=== PATIENT | female | born 1970 | race Caucasian/White ===

== ENCOUNTER 2021-02-09 00:55 | Emergency (ER) | payer SELFPAY ==
--- NOTE | 2021-02-09 00:59 | ED_ITS ---
HPI - Abdominal Pain General: Chief Complaint: Abdominal Pain Stated Complaint: ABD PAIN Time Seen by Provider: 02/09/21 00:59 History of Present Illness: HPI narrative: Ms. Ballesteros is a 50-year-old lady with significant past medical history of hypertension, hyperlipidemia, diabetes who presents emergency department due to abdominal pain. Pain is sharp and aching generally in the abdomen worse in the epigastric region. Symptoms are worse with movement and palpation but do not go with rest. Intensity is moderate to severe. No other systemic signs of illness. She is having bowel movements. No other known provoking, exacerbating, or alleviating factors identified. Review of Systems General: Reports: 10 or more systems reviewed and unremarkable except in HPI and below PFSH ED PFSH: Social History Smoking and tobacco status: never smoked Physical Exam Narrative: EXAM NARRATIVE: GENERAL/CONSTITUTIONAL - well-appearing. Uncomfortable due to abdominal pain. Eyes - PERRL, no conjunctival injection ENMT - Atraumatic external nose and ears. Moist mucous membranes NECK - supple. trachea midline CARDIOVASCULAR - regular rate and rhythm. Peripheral pulses 2+ and equal RESPIRATORY -clear to auscultation bilaterally. ABDOMEN/GI -tenderness to palpation generally with worse in epigastric region, no evidence of remote peritonitis. MSK - Extremities without obvious deformity or tenderness to palpation SKIN - Warm, Dry NEURO - alert and appropriately oriented. strength and sensation intact. Moves all extremities equally. PSYCH - Appropriate mood and affect Course ED course: - Patient was seen and evaluated by me at bedside - Patient placed on cardiac monitors, IV access obtained - Initial evaluation notable for uncomfortable due to abdominal pain. -Symptom treatment ordered - Labs notable for no significant hematologic or metabolic abnormality to explain patient's symptoms. Urinalysis not concerning for urinary tract inf ection. - Imaging notable for fluid-filled small bowel loops without evidence of acute obstruction. - Upon serial reexamination after treatment the patient was improved with symptom management - Based on patient history, evaluation, labs, and imaging as interpreted the most likely cause of the patient's condition is enteritis - The results of ED evaluation were discussed with the patient including prescriptions and/or symptomatic cares (if applicable) including appropriate and responsible use, followup plan, and return precautions. The patient verbalized understanding and felt safe for discharge. - Patient discharged in satisfactory condition. Vital Signs: Vital signs: Vital Signs Temperature 96.9 F L 02/09/21 01:00 Pulse Rate 68 02/09/21 04:44 Respiratory Rate 16 02/09/21 04:44 Blood Pressure 125/80 02/09/21 04:44 Pulse Oximetry 98 02/09/21 04:44 MDM - Abdominal Pain Medical Records: Attestation: I reviewed the patient's medical records. Lab Data: Attestation: I reviewed the patient's lab results. Labs: Lab Results 02/09/21 02/09/21 02/09/21 01:20 01:30 01:30 WBC 7.8 10^3/uL 10^3/ uL (4.0-10.0) RBC 4.20 10^6/uL 10^6 /uL (4.1-5.3) Hgb 11.8 g/dL g/dL (11.5-15.3) Hct 37.2 % % (37.0-47.0) MCV 88.6 fl fl (81-99) MCH 28.1 pg pg (28.0-34.0) MCHC 31.7 g/dL g/dL (30.0-36.0) RDW 12.7 % % (12.1-15.1) Plt Count 314 10^3/cmm 10^3 /cmm (130-400) MPV 9.4 fL fL (7.4-10.4) Neut % (Auto) 63.5 % % Lymph % (Auto) 24.3 % % Hartley % (Auto) 6.7 % % Eos % (Auto) 4.4 % % Baso % (Auto) 0.8 % % Neut # (Auto) 4.96 10^3/uL 10^3 /uL (1.8-7.7) Lymph # (Auto) 1.9 10^3/uL 10^3/ uL (0.8-4.8) Hartley # (Auto) 0.5 10^3/uL 10^3/ uL (0.2-0.9) Eos # (Auto) 0.3 10^3/uL 10^3/ uL (0.0-0.8) Baso # (Auto) 0.1 10^3/uL 10^3/ uL (0.0-0.1) Nucleated RBC % (a uto) 0 % % Nucleated RBCs # 0.0 /100WBC /100W BC Sodium 135 mmol/L L mmol /L (136-145) Potassium 4.0 mmol/L mmol/L (3.5-5.1) Chloride 101 mmol/L mmol/L (98-107) Carbon Dioxide 22 mmol/L mmol/L (22-29) Anion Gap 16.0 (5-19) BUN 21 mg/dL H mg/dL (6-20) Creatinine 0.7 mg/dL mg/dL (0.5-0.9) GFR Calculation 87.9 mL/min L mL/ min (90-130) Glucose 149 mg/dL H mg/dL (65-115) Calculated Osmolal ity 286 mOsm/kg mOsm/ kg (285-295) Lactate Calcium 8.9 mg/dL mg/dL (8.5-10.5) Total Bilirubin 0.2 mg/dL mg/dL (0.15-1.2) AST 13 U/L U/L (0-32) ALT 6 U/L U/L (0-33) Alkaline Phosphata se 76 IU/L IU/L (35-105) Troponin T Baselin e Troponin T 120 [address] [place] Delta Troponin T Total Protein 5.7 g/dL L g/dL (6.6-8.7) Albumin 3.7 g/dL g/dL (3.5-5.2) Globulin 2.0 g/dL g/dL (1.3-4.6) Lipase 58 U/L U/L (13-60) Urine Color Yellow (Yellow) Urine Appearance Clear (CLEAR) Urine pH 7 (5-7) Ur Specific Gravit y 1.005 (1.005-1.030) Urine Protein Neg (Negative) Urine Glucose (UA) Norm (Normal) Urine Ketones Negative (Negative) Urine Blood Neg (Negative) Urine Nitrate Negative (Negative) Urine Bilirubin Neg (Negative) Urine Urobilinogen 1 mg/dL H mg/dL (Negative) Ur Leukocyte Sarah ase Trace H (Negative) Urine RBC 0-4 /hpf H /hpf (0-2) Urine WBC 0-4 /hpf H /hpf (0-5) Ur Squamous Epith Cells 0-4 /hpf H /hpf (0-5) Amorphous Sediment Not Reportable Urine Bacteria Trace /hpf /hpf (NONE) 02/09/21 02/09/21 02/09/21 01:30 01:30 03:24 WBC RBC Hgb Hct MCV MCH MCHC RDW Plt Count MPV Neut % (Auto) Lymph % (Auto) Hartley % (Auto) Eos % (Auto) Baso % (Auto) Neut # (Auto) Lymph # (Auto) Hartley # (Auto) Eos # (Auto) Baso # (Auto) Nucleated RBC % (a uto) Nucleated RBCs # Sodium Potassium Chloride Carbon Dioxide Anion Gap BUN Creatinine GFR Calculation Glucose Calculated Osmolal ity Lactate 1.3 mmol/L mmol/L (0.5-2.2) Calcium Total Bilirubin AST ALT Alkaline Phosphata se Troponin T Baselin e 6 ng/L ng/L (0-10) Troponin T [address] [place] 6.00 ng/L ng/L (0-10) Delta Troponin T 0 ABS# ABS# (0-10) Total Protein Albumin Globulin Lipase Urine Color Urine Appearance Urine pH Ur Specific Gravit y Urine Protein Urine Glucose (UA) Urine Ketones Urine Blood Urine Nitrate Urine Bilirubin Urine Urobilinogen Ur Leukocyte Sarah ase Urine RBC Urine WBC Ur Squamous Epith Cells Amorphous Sediment Urine Bacteria EKG Data ^: EKG 1: Attestation: I personally reviewed and interpreted this EKG as follows: EKG interpretation date: 02/09/21 EKG interpretation time: 01:58 Interpretation: Twelve-lead EKG shows a regular rhythm at a rate of 60. MS interval 154, QRS duration 84, QTc 430. Normal axis Interpretation: Sinus rhythm. Discharge Plan Discharge Patient Disposition: Home Clinical Impression: Abdominal pain, Enteritis Condition: Stable Prescriptions: New oxycodone 5 mg tablet 5 mg PO Q4H PRN (Reason: pain) Qty: 10 RF: 0 Zofran 4 mg tablet 4 mg PO Q8H 5 Days Qty: 15 RF: 0 No Action metformin 1,000 mg tablet 1,000 mg PO BID RF: 0 alprazolam [Xanax] 0.5 mg tablet 0.5 mg PO BID RF: 0 ropinirole 1 mg tablet 1 mg PO DAILY RF: 0 glipizide 10 mg tablet 10 mg PO BID RF: 0 lisinopril 10 mg tablet 10 mg PO DAILY RF: 0 valacyclovir 500 mg tablet 1,000 mg PO Q8H 7 Days Qty: 42 RF: 0 gabapentin 100 mg capsule 100 mg PO BID Qty: 20 RF: 0 Discharge Orders: Discharge ED (Routine); Ordered 02/09/21 Ordered By: Ean Lizarraga Discharge Diet: Advance as tolerated and Clear Liquid Discharge Activity: Resume usual activity Patient Instructions: Abdominal Pain (ED), Opioid Safety Activity Restrictions/Additional Instructions: Thank you for visiting the emergency department. You were seen and evaluated for abdominal pain. The exact cause of your symptoms is unclear, you were noted to have small bowel loops that were mildly prominent and fluid-filled which may be due to irritation of the small bowel. Please return the emergency department for worsening symptoms, inability to have bowel movements or pass gas, inability to tolerate oral intake, or anything else that you are concerned about and feel needs emergency department evaluation. Coding Level of Care Code ED Pharmacy Technician Instructor for Pavel Marquez
[2021-02-09 01:00] VITALS: BP 168/76; PULSE 68; RESP 18; TEMP 36.1; O2SAT 97; BMI 29.9
--- NOTE | 2021-02-09 01:04 | CTR_ITS ---
PROCEDURE INFORMATION: Exam: CT Abdomen And Pelvis With Contrast Exam date and time: 02/09/2021 1:04 AM Age: 50 years old Clinical indication: Abdominal pain; Prior surgery; Surgery type: Tubal ligation; Patient HX: Epigastric pain with nausea. ; Additional info: Epigastric abdominal pain TECHNIQUE: Imaging protocol: Computed tomography of the abdomen and pelvis with contrast. Radiation optimization: All CT scans at this facility use at least one of these dose optimization techniques: automated exposure control; mA and/or kV adjustment per patient size (includes targeted exams where dose is matched to clinical indication); or iterative reconstruction. Contrast material: OMNI 300; Contrast volume: 95 ml; Contrast route: INTRAVENOUS (IV); COMPARISON: No relevant prior studies available. RADIATION DOSE METRICS: Total DLP (mGy-cm): 1711.76 FINDINGS: Lungs: Numerous small calcified granulomas in the lower lungs. The lung bases otherwise appear essentially clear. Liver: There is fatty infiltration of the liver. The liver appears somewhat enlarged, with right lobe length of about 22 cm. No definite/significant focal hepatic abnormality. Gallbladder and bile ducts: Numerous small calcified gallstones within the gallbladder. The gallbladder is upper limit of normal in size, transverse diameter about 4 cm. No definite pericholecystic fluid or inflammation. No biliary tree dilation. Pancreas: Unremarkable. Spleen: Unremarkable. Adrenal glands: Unremarkable. Kidneys and ureters: Left upper pole intrarenal calculus. No hydronephrosis of either kidney. No visible ureteral calculus. No perinephric fluid. The kidneys enhance homogeneously. Stomach and bowel: A few small bowel loops in the left abdomen are fluid-filled and borderline prominent in size. The overall appearance is not suggestive of significant small bowel obstruction at this time. This appearance could be secondary to some form of gastroenteritis. Please correlate clinically. If there is clinical suspicion for small bowel obstruction, follow-up may be helpful to exclude progression. There are no CT findings to strongly suggest diverticulitis. Appendix: The appendix is visualized and appears normal. Intraperitoneal space: No free intraperitoneal air, or ascites. Vasculature: No evidence for abdominal aortic aneurysm. Lymph nodes: No retroperitoneal adenopathy. Urinary bladder: Possibly some diffuse urinary bladder wall thickening. However, evaluation is limited, as the bladder is essentially empty. While nonspecific, this could indicate evidence for cystitis. Please correlate clinically. Reproductive: Essentially unremarkable for age. Bones/joints: No significant acute finding. Soft tissues: Very small umbilical hernia, containing only fat. CT/CT abdomen pelvis w con* [id number] IMPRESSION: 1. Cholelithiasis, see additional details above. 2. A few small bowel loops are fluid-filled and borderline prominent in size, see above discussion. This appearance could be secondary to some form of gastroenteritis. 3. Normal appendix. 4. No free intraperitoneal air. 5. Possible diffuse urinary bladder wall thickening, see above. 6. Other findings discussed above. Radiation Dose CTDIVOL = (mGy): DLP = 1711.76 (mGy-cm)
--- NOTE | 2021-02-09 01:05 | ECG_ITS ---
[facility] Test Date: 2021-02-09 Pat Name: Myriam Daly Department: Room: Gender: Female Transportation Associate: : 1970 Requested By: Ean Lizarraga Order Number: [id number] Nikki MD: Sherman Barrera M.D. Measurements Intervals [place] Rate: 60 P: 42 MD: 154 QRS: 6 QRSD: 84 T: 30 QT: 429 QTc: 430 Interpretive Statements SINUS RHYTHM LOW QRS VOLTAGE IN PRECORDIAL LEADS [QRS DEFLECTION < 1.0 mV IN CHEST LEADS] POSSIBLE RIGHT VENTRICULAR CONDUCTION DELAY [RSR (QR) IN V1/V2] No previous ECG available for comparison Electronically Signed On 02-09-2021 18:38:12 CDT by Sherman Barrera M.D. [email or web address]
[2021-02-09] MEDS: ondansetron 2 mg/ML SDV 2 mL 4 MG IVP (01:20)
[2021-02-09 01:27] VITALS: RESP 22
[2021-02-09] MEDS: morphine 4 mg/mL SDV 1 mL IVP (01:27)
[2021-02-09] MEDS: iohexol 300 mg/mL 100 mL Btl IV (01:28)
[2021-02-09] MEDS: sodium chloride 0.9% 1,000 ML 999 ML IV (01:33)
[2021-02-09 01:49] LABS: Basophils # 0.1 10^3/uL (0.0-0.1); Basophils % 0.8 %; Eosinophils # 0.3 10^3/uL (0.0-0.8); Eosinophils % 4.4 %; Hematocrit 37.2 % (37.0-47.0); Hemoglobin 11.8 g/dL (11.5-15.3); Lymphocytes # 1.9 10^3/uL (0.8-4.8); Lymphocytes % 24.3 %; Mean Corpuscular HGB Conc 31.7 g/dL (30.0-36.0); Mean Corpuscular Hemoglobin 28.1 pg (28.0-34.0); Mean Corpuscular Volume 88.6 fl (81-99); Mean Platelet Volume 9.4 fL (7.4-10.4); Monocytes # 0.5 10^3/uL (0.2-0.9); Monocytes % 6.7 %; Neutrophils # 4.96 10^3/uL (1.8-7.7); Neutrophils % 63.5 %; Nucleated Red Blood Cells % 0 %; Platelet Count 314 10^3/cmm (130-400); Red Cell Distribution Width 12.7 % (12.1-15.1); White Blood Count 7.8 10^3/uL (4.0-10.0)
[2021-02-09 02:09] LABS: Troponin(5th) Baseline 6 ng/L (0-10)
[2021-02-09 02:12] LABS: Alanine Aminotransferase 6 U/L (0-33); Albumin Level 3.7 g/dL (3.5-5.2); Alkaline Phosphatase 76 IU/L (35-105); Blood Urea Nitrogen 21 mg/dL (6-20); Calcium 8.9 mg/dL (8.5-10.5); Carbon Dioxide 22 mmol/L (22-29); Chloride 101 mmol/L (98-107); Glomerular Filtration Rate 87.9 mL/min (90-130); Glucose 149 mg/dL (65-115); Lipase 58 U/L (13-60); Osmolality Calculated 286 mOsm/kg (285-295); Sodium 135 mmol/L (136-145); Total Bilirubin 0.2 mg/dL (0.15-1.2); Total Protein 5.7 g/dL (6.6-8.7)
[2021-02-09 02:13] LABS: Lactate (Lactic Acid level) 1.3 mmol/L (0.5-2.2)
[2021-02-09 02:30] LABS: Aspartate Amino Transferase 13 U/L (0-32)
[2021-02-09 02:46] LABS: Add Urine Microscopic? YES; Bilirubin Urine Neg (Negative); Blood Urine Neg (Negative); Glucose Urine UA Norm (Normal); Ketones Urine Negative (Negative); Leukocyte Esterase Urine Trace (Negative); Nitrate Urine Negative (Negative); Protein Urine Neg (Negative); Specific Gravity, Urine 1.005 (1.005-1.030); Urine Appearance Clear (CLEAR); Urine Color Yellow (Yellow); Urobilinogen Urine 1 mg/dL (Negative); pH Urine 7 (5-7)
[2021-02-09 02:47] LABS: Add Urine Culture? No; Bacteria Urine TRACE /hpf; RBC Urine 0-4 /hpf (0-2); Squamous Epithelial Cell Urine 0-4 /hpf (0-5); WBC Urine 0-4 /hpf (0-5)
[2021-02-09 03:56] LABS: Troponin 5 2HR Delta 0 ABS# (0-10)
[2021-02-09 04:33] VITALS: BP 125/80; PULSE 68; RESP 16; O2SAT 98
[2021-02-09 04:44] VITALS: BP 125/80; PULSE 68; RESP 16; O2SAT 98
== END 2021-02-09 04:40 | disposition home or self-care (01) ==
PROVIDERS: Emergency Provider Emergency Medicine
DX: K52.9 Noninfective gastroenteritis and colitis, unspecified (principal); Z79.84 Long term (current) use of oral hypoglycemic drugs
CPT/HCPCS: 36415; 74177; 80053; 81001; 83605; 83690; 84484; 85025; 93005; 96361; 96374; 96375; 99284; J2270; J2405; J7030; Q9967